=== PATIENT | female | born 1995 | race Two or more races ===

== ENCOUNTER 2021-08-10 09:33 | Day surgery (SDC) | payer OTHER ==
[2021-08-10] MEDS ORDERED: CILOXAN5 ML OTIC (17:27)
[2021-08-10] MEDS ORDERED: AMOX-CLAV 875-1 EACH PO (17:27)
[2021-08-10] MEDS ORDERED: ZOFRAN8 MG PO (17:27)
== END 2021-08-10 20:30 | disposition home or self-care (01) ==
LOC: CIR.AMB 09:33
PROVIDERS: ATTEND Otolaryngology Otology & Neurotology
DX: H90.A11 Conductive hearing loss, unilateral, right ear with restricted hearing on the contralateral side (principal); H72.01 Central perforation of tympanic membrane, right ear; H73.811 Atrophic flaccid tympanic membrane, right ear; H74.21 Discontinuity and dislocation of right ear ossicles; Z20.822 Contact with and (suspected) exposure to COVID-19

== ENCOUNTER 2022-02-08 07:57 | Day surgery (SDC) | payer OTHER ==
[~2022-02-08 07:57] MED LIST: AMOX-CLAV 875-1 EACH PO; ARNUITY ELLIPT50 MCG IH; CILOXAN5 ML OTIC; CLARITIN10 M1 PO; ZOFRAN8 MG PO
[2022-02-08] MEDS ORDERED: CEPHALEXIN500 M1 PO (13:49)
[2022-02-08] MEDS ORDERED: CILOXAN5 ML OTIC (13:49)
== END 2022-02-08 17:15 | disposition home or self-care (01) ==
LOC: CIR.AMB 07:57
PROVIDERS: ATTEND Otolaryngology Otology & Neurotology
DX: H71.92 Unspecified cholesteatoma, left ear (principal); H70.12 Chronic mastoiditis, left ear; H72.12 Attic perforation of tympanic membrane, left ear; J45.909 Unspecified asthma, uncomplicated